=== PATIENT | female | born 1965 | race African-American/Black ===

== ENCOUNTER 2017-08-12 08:18 | Emergency (ER) | payer OTHER ==
[2017-08-12 08:32] VITALS: BP 115/87; PULSE 85; TEMP 98; BMI 43.7
[2017-08-12] MEDS ORDERED: IBUPROFEN 400 MG TABLET (FP) PO ONE ×3 (09:27→09:36)
--- NOTE | 2017-08-12 09:27 | PDOC ---
History of Present Illness - General Chief Complaint: Respiratory Stated Complaint: NASAL CONGESTION Time Seen by Provider: 08/12/17 09:13 History Source: Patient Exam Limitations: No Limitations Past History - Past Medical History Allergies/Adverse Reactions: Allergies Allergy/AdvReac Type Severity Reaction Status Date / Time shellfish derived Allergy Swelling Verified 08/12/17 08:28 Home Medications: Ambulatory Orders Hydrochlorothiazide [Hctz] 25 mg PO DAILY 02/05/12 Metoprolol Tartrate [Lopressor -] 25 mg PO DAILY 02/05/12 Rabeprazole Sodium [Aciphex] 20 mg PO DAILY 02/05/12 Valsartan [Diovan] 320 mg PO DAILY 02/05/12 Aspirin/Calcium Carbonate/Mag [Aspirin Buffered 325 mg Tab] 325 mg PO DAILY 09/08 Amoxicillin/Potassium Clav [Augmentin 875-125 Tablet] 1 each PO BID #14 tablet 08/12/17 Anemia: No Asthma: No Cancer: Yes (COLON) Cardiac Disorders: Yes (BUNDLE BLOCK) CVA: No COPD: No CHF: No Dementia: No Diabetes: No GI Disorders: Yes (gerd) Disorders: No HTN: Yes Hypercholesterolemia: Yes Liver Disease: No Psychiatric Problems: Yes (ANXIETY.) Seizures: No Thyroid Disease: No - Surgical History Abdominal Surgery: Yes (COLON RESECTION) Appendectomy: No Cardiac Surgery: No Cholecystectomy: No Lung Surgery: No Neurologic Surgery: No Orthopedic Surgery: No - Reproductive History (#): 5 Para: 1 Cervical CA: No Dysfunctional Uterine Bleeding: No Ectopic : No Endometrial CA: No Polycystic Ovaries: No Therapeutic (s) & number: Yes (2) Tubal Ligation: No Spontaneous : 2 - Immunization History Td Vaccination: No TDAP Vaccination: No Immunization Up to Date: No - Suicide/Smoking/Psychosocial Hx Smoking Status: Yes Smoking History: Former smoker Years of Tobacco Use: 0 Have you smoked in the past 12 months: No Number of Cigarettes Smoked Daily: 0 Information on smoking cessation initiated: No Hx Alcohol Use: No Drug/Substance Use Hx: No Substance Use Type: None Hx Substance Use Treatment: No Review of Systems - Review of Systems Able to Perform ROS?: Yes Comments:: 08/12/17 09:28 CONSTITUTIONAL: Absent: fever, chills, diaphoresis, generalized weakness, malaise, loss of appetite HEENT: Present: facial pain, sore throat, increasing congestion, ear pain Absent: throat swelling, difficulty swallowing, mouth swelling, , eye pain, visual Changes CARDIOVASCULAR: Absent: chest pain, loss of consciousness, palpitations, irregular heart rate, peripheral edema RESPIRATORY: Absent: cough, shortness of breath, dyspnea with exertion, orthopnea, wheezing, stridor, hemoptysis. MUSCULOSKELETAL: Absent: myalgia, arthralgia, joint swelling SKIN: Absent: rash, itching, pallor NEUROLOGIC: Absent: headache, focal weakness or paresthesias, dizziness, unsteady gait, seizure, mental status changes, bladder or bowel incontinence. Is the patient limited [place] proficient: No *Physical Exam - Vital Signs Last Vital Signs Temp Pulse Resp BP Pulse Ox 98 F 85 19 115/87 98 08/12/17 08:28 08/12/17 08:28 08/12/17 08:28 08/12/17 08:28 08/12/17 08:28 - Physical Exam Comments: 08/12/17 09:29 GENERAL: Well developed, well nourished. Awake and alert. No acute distress. HEENT: Normocephalic, atraumatic. PERRLA, EOMI. No conjunctival pallor. Sclera are non- icteric. Moist mucous membranes. Oropharynx is clear. TM's appear pearly [place] in color with good cones of light b/l. Well defined landmarks. No bulging or erythema. TTP of the maxillary and frontal sinuses NECK: Supple. Full ROM. No JVD. Carotid pulses 2+ and symmetric, without bruits. No thyromegaly. No lymphadenopathy. CARDIOVASCULAR: Regular rate and rhythm. No murmurs, rubs, or gallops. Distal pulses are 2+ and symmetric. PULMONARY: No evidence of respiratory distress. Lungs clear to auscultation bilaterally. No wheezing, rales or rhonchi. EXTREMITIES: No cyanosis. No clubbing. No edema. No calf tenderness. SKIN: Warm and dry. Normal capillary refill. No rashes. No jaundice. NEUROLOGICAL: Alert, awake, appropriate. Cranial nerves 2-12 intact. No deficits to light touch and temperature in face, upper extremities and lower extremities. No motor deficits in the in face, upper extremities and lower extremities. Normoreflexic in the upper and lower extremities. Normal speech. Toes are down- going bilaterally. Gait is normal without ataxia. *DC/Admit/Observation/Transfer Diagnosis at time of Disposition: Sinus infection Qualifiers: Sinusitis location: maxillary Chronicity: acute Recurrence: non-recurrent Qualified Code(s): J01.00 - Acute maxillary sinusitis, unspecified - Discharge Dispostion Disposition: HOME Condition at time of disposition: Stable Admit: No - Prescriptions Prescriptions: Amoxicillin/Potassium Clav [Augmentin 875-125 Tablet] 1 each PO BID #14 tablet - Referrals Referrals: Lucero Carl MD [Primary Care Provider] - Woodrow Shen MD [Staff Physician] - - Patient Instructions Printed Discharge Instructions: DI for Sinusitis Additional Instructions: You have a sinus infection. Please take the Augmentin twice a day for one week to help with your symptoms. You may take Motrin 800 mg every 8 hours as needed for pain. Warm steamy showers may help with decongestion. You may also use the Shirley pot to help remove any excess mucous. These can be picked up over-the- counter at the pharmacy. Please follow-up with your primary care doctor later this week. Return to the emergency department if you have worsening headache, lightheadedness, dizziness, fevers, or any changes in your symptoms. - Post Discharge Activity
== END 2017-08-12 09:44 | disposition home or self-care (01) ==
LOC: JERFT 08:18
DX: J01.00 Acute maxillary sinusitis, unspecified (principal); I10 Essential (primary) hypertension; E78.00 Pure hypercholesterolemia, unspecified; K21.9 Gastro-esophageal reflux disease without esophagitis; F41.9 Anxiety disorder, unspecified; Z85.038 Personal history of other malignant neoplasm of large intestine; Z87.891 Personal history of nicotine dependence
CPT/HCPCS: 99281-25

== ENCOUNTER 2018-02-03 09:37 | Emergency (ER) | payer OTHER ==
[2018-02-03 09:56] VITALS: BMI 43.9
--- NOTE | 2018-02-03 10:11 | PDOC ---
History of Present Illness - General Chief Complaint: Pain, Acute Stated Complaint: NAUSEA, LIGHTHEADED Time Seen by Provider: 02/03/18 10:11 - History of Present Illness Initial Comments: 02/03/18 11:28 The patient is a 52 year old female with a history of HTN, HLD, Colon CA, Anxiety who presents for evaluation of lightheadedness, nausea, and flank pain. The patient reports a several day history of intermittent lightheadedness and dizziness that usually resolves on its own. She noted some poorly described right sided flank pain yesterday evening as well that resolved after drinking water, however given her constellation of symptoms presents to the ER for further evaluation. She otherwise denies fevers, chills, SOB, chest pain, vomiting, or changes with urination or bowel movements. Past History - Past Medical History Allergies/Adverse Reactions: Allergies Allergy/AdvReac Type Severity Reaction Status Date / Time shellfish derived Allergy Swelling Verified 02/03/18 09:52 Home Medications: Ambulatory Orders Hydrochlorothiazide [Hctz] 25 mg PO DAILY 02/05/12 Metoprolol Tartrate [Lopressor -] 25 mg PO DAILY 02/05/12 Rabeprazole Sodium [Aciphex] 20 mg PO DAILY 02/05/12 Valsartan [Diovan] 320 mg PO DAILY 02/05/12 Aspirin/Calcium Carbonate/Mag [Aspirin Buffered 325 mg Tab] 325 mg PO DAILY 09/08 Mirabegron [Myrbetriq] 50 mg PO DAILY 02/03/18 Pentosan Polysulfate Sodium [Elmiron] 100 mg PO TID 02/03/18 Simvastatin [Zocor -] 20 mg PO HS 02/03/18 Anemia: No Asthma: No Cancer: Yes (COLON) Cardiac Disorders: Yes (BUNDLE BLOCK) CVA: No COPD: No CHF: No Dementia: No Diabetes: No GI Disorders: Yes (gerd) Disorders: No HTN: Yes Hypercholesterolemia: Yes Liver Disease: No Psychiatric Problems: Yes (ANXIETY.) Seizures: No Thyroid Disease: No - Surgical History Abdominal Surgery: Yes (COLON RESECTION) Appendectomy: No Cardiac Surgery: No Cholecystectomy: No Lung Surgery: No Neurologic Surgery: No Orthopedic Surgery: No - Reproductive History (#): 5 Para: 1 Cervical CA: No Dysfunctional Uterine Bleeding: No Ectopic : No Endometrial CA: No Polycystic Ovaries: No Therapeutic (s) & number: Yes (2) Tubal Ligation: No Spontaneous : 2 - Immunization History Td Vaccination: No TDAP Vaccination: No Immunization Up to Date: No - Suicide/Smoking/Psychosocial Hx Smoking Status: Yes Smoking History: Former smoker Years of Tobacco Use: 0 Have you smoked in the past 12 months: No Number of Cigarettes Smoked Daily: 0 Information on smoking cessation initiated: No Hx Alcohol Use: No Drug/Substance Use Hx: No Substance Use Type: None Hx Substance Use Treatment: No Review of Systems - Review of Systems Comments:: 02/03/18 11:32 Constitutional: No fevers, chills, fatigue, malaise HEENT: No Rhinorrhea, nasal congestion, visual changes Cardiovascular: Lightheadedness. No chest pain, syncope, palpitations, Respiratory: No Cough, SOB, Hemoptysis, Gastrointestinal: Nausea. No Vomiting, Constipation, Diarrhea, Melena Genitourinary: Right Flank pain. No Dysuria, Frequency, Urgency, Hesitancy, Hematuria, Musculoskeletal: No Myalgia, arthralgia Skin: No rashes, itching, bruising, pallor Neurologic: Dizziness. No Headache, Numbness, Weakness, or Tingling Psychiatric: No Hallucinations. No SI or HI *Physical Exam - Vital Signs Last Vital Signs Temp Pulse Resp BP Pulse Ox 98.4 F 70 19 138/76 97 02/03/18 09:53 02/03/18 09:53 02/03/18 09:53 02/03/18 09:53 02/03/18 09:53 - Physical Exam Comments: 02/03/18 11:32 General Appearance: Nourished. No Apparent Distress HEENT: TM are clear. No Pharyngeal Erythema, Tonsillar Exudate, Tonsillar Erythema Neck: No Cervical Lymphadenopathy Respiratory/Chest: Lungs Clear, Normal Breath Sounds. No Crackles, Rales, Rhonchi, Wheezing Cardiovascular: Regular Rhythm, Regular Rate. No Murmur, Gallops, Rubs Gastrointestinal/Abdominal: Normal Bowel Sounds, Soft. No Guarding, Rebound, Tenderness Musculoskeletal: No CVA Tenderness Extremity: Normal Capillary Refill Integumentary: Normal Color, Dry, Warm Neurologic:Fully Oriented, Alert, Normal Mood/Affect, Normal Response, Heart Score/ECG Review #1 ECG reviewed & interpreted by me at: 12:37 General ECG Interpretation: Sinus Rhythm, Normal Rate, No acute ischemic changes Compared to previous ECG there are: No significant change 02/03/18 12:37 Left Bundle Branch Block ED Treatment Course - LABORATORY CBC & Chemistry Diagram: 02/03/18 10:30 02/03/18 10:30 Medical Decision Making - Medical Decision Making 02/03/18 11:33 The patient is a 52 year old female with a history of HTN, HLD, Colon CA, Anxiety who presents for evaluation of lightheadedness, nausea, and flank pain. Given the patient's history and physical exam, we will obtain a cbc, cmp, lipase, ua to evaluate further for possible etiologies. We will treat in the meantime with iv fluids and continue to monitor and reassess while here in the ED. 02/03/18 12:47 CBC, cmp, liapase, ua are unremarkable. The patient appears clinically well on exam. We are comfortable discharging the patient home with primary care provider follow up on . We discussed the results, plan, and return precautions with the patient who voiced understanding and is agreeable with the plan. *DC/Admit/Observation/Transfer Diagnosis at time of Disposition: Lightheadedness - Discharge Dispostion Disposition: HOME Condition at time of disposition: Stable Decision to Admit order: No - Referrals Referrals: Lucero Carl MD [Staff Physician] - - Patient Instructions Printed Discharge Instructions: DI for Syncope in Adults (Fainting) Additional Instructions: Please return to the ER if you experience concerning or worsening symptoms including worsening pain, weakness, or vomiting. Your lab results were normal here in the ER. Please make sure you keep your follow up appointment with your primary care provider in 1 week to discuss your ER visit and further management of your symptoms. - Post Discharge Activity
[2018-02-03] MEDS ORDERED: SODIUM CHLORIDE 1,000 ML IV STA (10:37)
[2018-02-03 11:04] LABS: BASO % 0.6 % (0-2.0); EOS % 1.9 % (0-4.5); HEMATOCRIT 39.2 % (32.4-45.2); HEMOGLOBIN 13.1 GM/dL (10.7-15.3); LYMPH % 32.3 % (8-40); MCH 28.1 pg (25.7-33.7); MCHC 33.4 g/dl (32.0-36.0); MEAN CELL VOLUME 84.1 fl (80-96); MEAN PLT VOLUME 9.5 fl (7.5-11.1); MONO % 8.2 % (3.8-10.2); PLATELET COUNT 183 K/MM3 (134-434); RBC 4.67 M/mm3 (3.60-5.2); RDW 14.4 % (11.6-15.6); WHITE BLOOD COUNT 4.2 K/mm3 (4.0-10.0)
[2018-02-03 11:05] LABS: URINE APPEARANCE CLEAR; URINE BILIRUBIN NEGATIVE (<2.0 mg/dL); URINE COLOR LTYELLOW; URINE GLUCOSE (UA) NEGATIVE (NEGATIVE); URINE KETONE NEGATIVE (NEGATIVE); URINE LEUK ESTERASE NEGATIVE (NEGATIVE); URINE NITRITE NEGATIVE (NEGATIVE); URINE PROTEIN NEGATIVE (NEGATIVE)
--- NOTE | 2018-02-03 11:12 | PDOC ---
Attending Attestation - Resident Resident Name: Cesar Raines - ED Attending Attestation I have performed the following: I have examined & evaluated the patient, The case was reviewed & discussed with the resident, I agree w/resident's findings & plan, Exceptions are as noted - HPI HPI: 02/03/18 11:51 Patient is a 52 year old female with a significant past medical history of Colon CA s/p resection, HTN, HL, GERD, vertigo, who presents to the ED with complaints of lightheadedness that began earlier this week. Patient reports experiencing dizziness, stating it feels like she is going to lose consciousness when she stands. She also reports experiencing right sided mid abdominal pain that began yesterday evening while at home. Patient reports pain subsided after she drank water. She presents today due to the lightheadness. She states this feels like her typical vertigo. No treatments tried. Denies chest pain, Sob. Denies nausea, vomiting, diarrhea. Denies contact with sick individuals, out of state travelling. Denies dysuria, hematuria. Denies constipation, diarrhea. Denies trauma to affected area. Denies any other symptoms. Allergies: Shellfish. Social history: Former smoker. No alcohol. No illicit drugs. Surgical history: Colon resection PMD: Dr. Carl - Physicial Exam PE: 02/03/18 11:56 GENERAL: Awake, alert, and fully oriented, in no acute distress HEAD: No signs of trauma EYES: PERRLA, EOMI, sclera anicteric, conjunctiva clear ENT: Auricles normal inspection, hearing grossly normal, nares patent, oropharynx clear without exudates. Moist mucosa NECK: Normal ROM, supple, no lymphadenopathy, JVD, or masses LUNGS: Breath sounds equal, clear to auscultation bilaterally. No wheezes, and no crackles HEART: Regular rate and rhythm, normal S1 and S2, no murmurs, rubs or gallops ABDOMEN: Soft, nontender, normoactive bowel sounds. No guarding, no rebound. No masses. No CVAT EXTREMITIES: Normal range of motion, no edema. No clubbing or cyanosis. No cords, erythema, or tenderness BACK: No midline spinal tenderness in cervical/thoracic/lumbar region NEUROLOGICAL: Normal speech, cranial nerves intact, negative pronator drift, 5/ 5 strength in all 4 extremities, normal sensation to light touch in all 4 extremities, normal cerebellar exam, normal gait, normal reflexes and tone SKIN: Warm, Dry, normal turgor, no rashes or lesions noted. - Medical Decision Making 02/03/18 11:00 52yo F presents to the ED with lightheadedness, worse when standing c/w clinical orthostasis. Pt likely dehydrated as she states she doesn't drink a lot of water even when it's hot out. With regards to resolved R sided abd pain, pt is not tender today on exam and currently denies abd pain. Will check labs including lipase, LFTs and consider US if abnormal. Will also check EKG, UA, CBC. 02/03/18 12:44 Labs, urinalysis, unremarkable EKG with LBBB, LAD, no change compared to previous Pt reports resolution of sxs after 1L normal saline and feels much better Ambulating in the ED, requests DC home I discussed the physical exam findings, ancillary test results and final diagnoses with the patient. I answered all of the patient's questions. The patient was satisfied with the care received and felt comfortable with the discharge plan and treatment plan. The patient will call their primary care physician within 24 hours to arrange follow-up and will return to the Emergency Department with any new, persistent or worsening symptoms. Heart Score/ECG Review #1 02/03/18 12:41 Twelve-lead EKG was performed and reviewed by me. Sinus rhythm with first- degree AV block. +LAD and LBBB. No ST changes that meet scarbossa criteria. COmpared to EKG from 12/24/16, no sig changes
[2018-02-03] MEDS ORDERED: MECLIZINE HCL 25 MG TABLET (FP) PO ONE (11:48)
[2018-02-03 11:50] LABS: ALBUMIN 3.4 g/dl (3.4-5.0); ALK PHOS 95 U/L (45-117); ANION GAP 7 (8-16); BILIRUBIN,TOTAL 0.6 mg/dL (0.2-1.0); BLOOD UREA NITROGEN 14 mg/dL (7-18); CALCIUM 8.8 mg/dL (8.5-10.1); CHLORIDE 103 mmol/L (98-107); CO2 31 mmol/L (21-32); CREATININE 0.9 mg/dL (0.55-1.02); GLUCOSE,RANDOM 92 mg/dL (74-106); LIPASE 127 U/L (73-393); POTASSIUM 3.5 mmol/L (3.5-5.1); SGOT/AST 20 U/L (15-37); SGPT/ALT 26 U/L (12-78); SODIUM 141 mmol/L (136-145); TOT PROT 7.3 g/dl (6.4-8.2)
[2018-02-03] MEDS ORDERED: MECLIZINE HCL 25 MG TABLET (FP) ONE (12:05)
[2018-02-03 12:56] VITALS: BP 135/72; PULSE 69; TEMP 98.1
--- NOTE | 2018-02-04 09:05 | EKG ---
Test Reason : Blood Pressure : / mmHG Vent. Rate : 066 BPM Atrial Rate : 066 BPM P-R Int : 240 ms QRS Dur : 166 ms QT Int : 464 ms P-R-T Axes : 023 -38 083 degrees QTc Int : 486 ms SINUS RHYTHM WITH 1ST DEGREE A-V BLOCK LEFT AXIS DEVIATION LEFT BUNDLE BRANCH BLOCK ABNORMAL ECG WHEN COMPARED WITH ECG OF 24-DEC-2016 17:00, NONSPECIFIC T WAVE ABNORMALITY HAS REPLACED INVERTED T WAVES IN LATERAL LEADS Confirmed by NILDA BATRES MD ([id number]) on 02/04/2018 9:05:00 AM Referred By: Confirmed By:NILDA BATRES MD
== END 2018-02-03 12:56 | disposition home or self-care (01) ==
LOC: JER 09:37
PROC: 3E0337Z Introduction of Electrolytic and Water Balance Substance into Peripheral Vein, Percutaneous Approach (ICD-10-PCS; principal; 2018-02-03)
DX: R42 Dizziness and giddiness (principal); I10 Essential (primary) hypertension; E78.5 Hyperlipidemia, unspecified; F41.9 Anxiety disorder, unspecified; Z85.038 Personal history of other malignant neoplasm of large intestine
CPT/HCPCS: 36415; 80053; 81003; 83690; 85025; 87086; 93005; 93010; 99281-25; J7030

== ENCOUNTER 2018-09-19 08:30 | Emergency (ER) | payer OTHER ==
[2018-09-19 08:41] VITALS: BP 121/70; PULSE 73; TEMP 97.6; BMI 43.0
--- NOTE | 2018-09-19 09:27 | PDOC ---
History of Present Illness - General Chief Complaint: Ear Problem Stated Complaint: EAR / ABD PAIN Time Seen by Provider: 09/19/18 08:56 History Source: Patient Exam Limitations: Clinical Condition - History of Present Illness Initial Comments: 09/19/18 09:22 Patient with history of hypertension, hyperlipidemia and colon cancer diagnosed over 5 years ago now status post colostomy present with complaint of 4 day history of dizziness, facial pain, right ear pain and floaters which comes on spontaneously. Patient also reported occasional nausea. Patient reports symptoms has been intermittent over 2 years and she get this symptoms ever 3-4 months. Patient has not had any evaluation for symptoms. Patient on 3 blood pressure medication for blood pressure control. Denies fever, chills, vomiting. Denies chest pain, shortness of breath or chills. Timing/Duration: other (4 days) Past History - Past Medical History Allergies/Adverse Reactions: Allergies Allergy/AdvReac Type Severity Reaction Status Date / Time shellfish derived Allergy Swelling Verified 09/19/18 08:35 Home Medications: Ambulatory Orders Hydrochlorothiazide [Hctz] 25 mg PO DAILY 02/05/12 Metoprolol Tartrate [Lopressor -] 25 mg PO DAILY 02/05/12 Rabeprazole Sodium [Aciphex] 20 mg PO DAILY 02/05/12 Valsartan [Diovan] 320 mg PO DAILY 02/05/12 Aspirin/Calcium Carbonate/Mag [Aspirin Buffered 325 mg Tab] 325 mg PO DAILY 09/08 Mirabegron [Myrbetriq] 50 mg PO DAILY 02/03/18 Pentosan Polysulfate Sodium [Elmiron] 100 mg PO TID 02/03/18 Simvastatin [Zocor -] 20 mg PO HS 02/03/18 Neomycin/Polymyxin B/Hydrocort [Sonhhjqh-Dyqbwkngm-Gy Ear Susp] 4 drop OT Q6H 5 Days #1 bottle 09/19/18 Anemia: No Asthma: No Cancer: Yes (COLON) Cardiac Disorders: Yes (BUNDLE BLOCK) CVA: No COPD: No CHF: No Dementia: No Diabetes: No GI Disorders: Yes (gerd) Disorders: No HTN: Yes Hypercholesterolemia: Yes Liver Disease: No Psychiatric Problems: Yes (ANXIETY.) Seizures: No Thyroid Disease: No - Surgical History Abdominal Surgery: Yes (COLON RESECTION) Appendectomy: No Cardiac Surgery: No Cholecystectomy: No Lung Surgery: No Neurologic Surgery: No Orthopedic Surgery: No - Reproductive History (#): 5 Para: 1 Cervical CA: No Dysfunctional Uterine Bleeding: No Ectopic : No Endometrial CA: No Polycystic Ovaries: No Therapeutic (s) & number: Yes (2) Tubal Ligation: No Spontaneous : 2 - Immunization History Td Vaccination: No TDAP Vaccination: No Immunization Up to Date: No - Suicide/Smoking/Psychosocial Hx Smoking Status: Yes Smoking History: Never smoked Years of Tobacco Use: 0 Have you smoked in the past 12 months: No Number of Cigarettes Smoked Daily: 0 Hx Alcohol Use: No Drug/Substance Use Hx: No Substance Use Type: None Hx Substance Use Treatment: No Review of Systems - Review of Systems Able to Perform ROS?: Yes Is the patient limited [place] proficient: No Constitutional: No: Chills, Fever, Malaise HEENTM: Yes: Symptoms Reported, See HPI, Eye Pain, Ear Pain (right). No: Blurred Vision, Tearing, Recent change in vision, Double Vision, Cataracts, Ocular Prothesis, Ear Discharge, Nose Pain, Nose Congestion, Tinnitus, Nose Bleeding, Hearing Loss, Throat Pain, Throat Swelling, Mouth Pain, Dental Problems, Difficulty Swallowing, Mouth Swelling, Other Respiratory: No: Symptoms reported, See HPI, Cough, Orthopnea, Shortness of Breath, SOB with Exertion, SOB at Rest, Stridor, Wheezing, Productive cough, Hemoptysis, Other Cardiac (ROS): No: Symptoms Reported, See HPI, Chest Pain, Edema, Irregular Heart Rate, Lightheadedness, Palpitations, Syncope, Chest Tightness, Other ABD/GI: Yes: See HPI, Nausea. No: Constipated, Diarrhea, Vomiting, Abdominal cramping Neurological: Yes: Headache (intermittent), Dizziness (intermittent). No: Numbness, Paresthesia, Seizure, Weakness, Unsteady Gait, Ataxia All Other Systems: Reviewed and Negative *Physical Exam - Vital Signs Last Vital Signs Temp Pulse Resp BP Pulse Ox 97.6 F 73 20 121/70 99 09/19/18 08:35 09/19/18 08:35 09/19/18 08:35 09/19/18 08:35 09/19/18 08:35 - Physical Exam Comments: 09/19/18 09:27 GENERAL: Well developed, well nourished. Awake and alert. No acute distress. HEENT: Moderate cerumen with mild fluid in right ear canal . Normocephalic, atraumatic. PERRLA, EOMI. No conjunctival pallor. Sclera are non- icteric. Moist mucous membranes. Oropharynx is clear. NECK: Supple. Full ROM. No JVD. Carotid pulses 2+ and symmetric, without bruits. No thyromegaly. No lymphadenopathy. CARDIOVASCULAR: Regular rate and rhythm. No murmurs, rubs, or gallops. Distal pulses are 2+ and symmetric. PULMONARY: No evidence of respiratory distress. Lungs clear to auscultation bilaterally. No wheezing, rales or rhonchi. ABDOMINAL: Soft. Non-tender. Non-distended. No rebound or guarding. No organomegaly. Normoactive bowel sounds. MUSCULOSKELETAL Normal range of motion at all joints. No bony deformities or tenderness. No CVA tenderness. EXTREMITIES: No cyanosis. No clubbing. No edema. No calf tenderness. SKIN: Warm and dry. Normal capillary refill. No rashes. No jaundice. NEUROLOGICAL: Alert, awake, appropriate. Cranial nerves 2-12 intact. No deficits to light touch and temperature in face, upper extremities and lower extremities. No motor deficits in the in face, upper extremities and lower extremities. Normal speech. Toes are down-going bilaterally. Gait is normal without ataxia. PSYCHIATRIC: Cooperative. Good eye contact. Appropriate mood and affect. General Appearance: Yes: Nourished, Appropriately Dressed. No: Apparent Distress ED Treatment Course - RADIOLOGY Radiology Studies Ordered: Category Date Time Status HEAD CT WITHOUT CONTRAST [CT] Stat CT Scan 09/19/18 09:21 Ordered Medical Decision Making - Medical Decision Making 09/19/18 09:33 Patient with history of hypertension, hyperlipidemia and colon cancer diagnosed over 5 years ago now status post colostomy present with complaint of 4 day history of dizziness, facial pain, right ear pain and floaters which comes on spontaneously. Patient also reported occasional nausea. Patient reports symptoms has been intermittent over 2 years and she get this symptoms ever 3-4 months. Patient has not had any evaluation for symptoms. Patient on 3 blood pressure medication for blood pressure control. Denies fever, chills, vomiting. Denies chest pain, shortness of breath or chills. Exam significant for moderate cerumen with mild fluid in right ear canal. Normal neuro exam. Lungs clear to auscultation. Normal ophthalmic exam. Head CT without contrast ordered to rule out intracranial mass or lesion. Patient be discharged home with ear drops with ophthalmology and ENT follow-up if negative head CT. 09/19/18 10:[address] negative for acute intracranial pathology. Patient is stable for discharge with ENT and ophthalmology follow-up *DC/Admit/Observation/Transfer Diagnosis at time of Disposition: Otalgia of right ear, Lightheadedness Floater, vitreous Qualifiers: Laterality: bilateral Qualified Code(s): H43.393 - Other vitreous opacities, bilateral - Discharge Dispostion Disposition: HOME Condition at time of disposition: Stable Decision to Admit order: No - Prescriptions Prescriptions: Neomycin/Polymyxin B/Hydrocort [Rkiadhht-Inwcfnhyu-Ja Ear Susp] 4 drop OT Q6H 5 Days #1 bottle - Referrals Referrals: Farhad Marques MD [Staff Physician] - Woodrow Shen MD [Staff Physician] - - Patient Instructions Printed Discharge Instructions: DI for Eye Floaters Additional Instructions: Follow-up with Dr. Shen for ear pains. Follow-up with ophthalmology Dr. Marques for visual floaters as soon as possible. Your head CAT scan shows no mass or acute pathology - Post Discharge Activity
== END 2018-09-19 10:31 | disposition home or self-care (01) ==
LOC: JERFT 08:30
DX: H66.91 Otitis media, unspecified, right ear (principal); H43.393 Other vitreous opacities, bilateral; R42 Dizziness and giddiness; I10 Essential (primary) hypertension; E78.5 Hyperlipidemia, unspecified; Z85.038 Personal history of other malignant neoplasm of large intestine
CPT/HCPCS: 70450-TC; 84703; 99281-25

== ENCOUNTER 2020-01-09 07:34 | Emergency (ER) | payer OTHER ==
[2020-01-09] MEDS ORDERED: DIPHTH,PERTUSS(ACELL),TET 0.5 ML DISP.SYRIN IM ONE ×2 (07:41→08:01)
[2020-01-09 07:42] VITALS: BP 130/64; PULSE 72; TEMP 98.4; BMI 48.7
--- NOTE | 2020-01-09 07:58 | PDOC ---
Rapid Medical Evaluation Chief Complaint: Laceration Time Seen by Provider: 01/09/20 07:37 Medical Evaluation: Allergies Allergy/AdvReac Type Severity Reaction Status Date / Time shellfish derived Allergy Swelling Verified 09/19/18 08:35 Vital Signs Temp Pulse Resp BP Pulse Ox 98.4 F 72 16 130/64 99 01/09/20 07:38 01/09/20 07:38 01/09/20 07:38 01/09/20 07:38 01/09/20 07:38 01/09/20 07:57 CC: lac to left 2 nd finger from broken glass last night, unknown last tdap Exam: 2-3 cm lac over lt 2nd mcp, visable tendons, 5/5 extension/flexion against resistance PlanL: xray to r/o fb, tdap Discharge Disposition - Diagnosis Laceration of finger - Discharge Dispostion Condition at time of disposition: Stable - Referrals - Patient Instructions - Post Discharge Activity
[2020-01-09] MEDS ORDERED: LIDOCAINE HCL 1%, 10 MG/ML (20ML VIAL) ONE (08:05)
[2020-01-09] MEDS ORDERED: CEPHALEXIN MONOHYDRATE 500 MG CAPSULE (UD) PO ONE (08:33)
[2020-01-09] MEDS ORDERED: CEPHALEXIN MONOHYDRATE 500 MG CAPSULE (UD) ONE (08:34)
--- NOTE | 2020-01-09 08:39 | PDOC ---
History of Present Illness - General Chief Complaint: Laceration Stated Complaint: LACERATION LEFT HAND Time Seen by Provider: 01/09/20 07:37 History Source: Patient Exam Limitations: No Limitations - History of Present Illness Initial Comments: 01/09/20 08:40 Patient is a 54-year-old female with a history of high blood pressure and colon cancer who presents to the ED with complaint of a laceration that she sustained to her left hand yesterday while closing a window. She states the window was already broken, and when she went to go close it it fell onto her. A broken piece of the window cut her hand. She states that she was scared to come to the emergency department yesterday so took some convincing prior to coming in. She states the injury happened at 9:30 PM. She denies any numbness or tingling. She is right-hand dominant. She has not taken anything for her symptoms. She does admit to washing the wound initially with peroxide. Past History - Medical History Allergies/Adverse Reactions: Allergies Allergy/AdvReac Type Severity Reaction Status Date / Time shellfish derived Allergy Swelling Verified 09/19/18 08:35 Home Medications: Ambulatory Orders Hydrochlorothiazide [Hctz] 25 mg PO DAILY 02/05/12 Metoprolol Tartrate [Lopressor -] 25 mg PO DAILY 02/05/12 Rabeprazole Sodium [Aciphex] 20 mg PO DAILY 02/05/12 Valsartan [Diovan] 320 mg PO DAILY 02/05/12 Aspirin/Calcium Carbonate/Mag [Aspirin Buffered 325 mg Tab] 325 mg PO DAILY 11/27/14 Mirabegron [Myrbetriq] 50 mg PO DAILY 02/03/18 Pentosan Polysulfate Sodium [Elmiron] 100 mg PO TID 02/03/18 Simvastatin [Zocor -] 20 mg PO HS 02/03/18 Amox-Tr/K Cl [Augmentin - 875Mg Tablet] 1 tab PO BID #14 tablet 09/19/18 Neomycin/Polymyxin B/Hydrocort [Qipzdeop-Ynzctadaa-Lt Ear Susp] 4 drop OT Q6H 5 Days #1 bottle 09/19/18 Cephalexin [Keflex] 500 mg PO BID #14 capsule 01/09/20 Anemia: No Asthma: No Cancer: Yes (COLON) Cardiac Disorders: Yes (BUNDLE BLOCK) CVA: No COPD: No CHF: No Dementia: No Diabetes: No GI Disorders: Yes (gerd) Disorders: No HTN: Yes Hypercholesterolemia: Yes Liver Disease: No Psychiatric Problems: Yes (ANXIETY.) Seizures: No Thyroid Disease: No - Surgical History Abdominal Surgery: Yes (COLON RESECTION) Appendectomy: No Cardiac Surgery: No Cholecystectomy: No Lung Surgery: No Neurologic Surgery: No Orthopedic Surgery: No - Reproductive History (#): 5 Para: 1 Cervical CA: No Dysfunctional Uterine Bleeding: No Ectopic : No Endometrial CA: No Polycystic Ovaries: No Therapeutic (s) & number: Yes (2) Tubal Ligation: No Spontaneous : 2 - Immunization History Td Vaccination: No TDAP Vaccination: No Immunization Up to Date: No - Psycho-Social/Smoking History Smoking Status: Yes Smoking History: Never smoked Years of Tobacco Use: 0 Have you smoked in the past 12 months: No Number of Cigarettes Smoked Daily: 0 Information on smoking cessation initiated: No - Substance Abuse Hx (Audit-C & DAST Scrn) How often the patient has a drink containing alcohol: Never Score: In Men: 4 or > Positive; In Women: 3 or > Positive: 0 Screen Result (Pos requires Nsg. Audit-10AR): Negative In the last yr the pt used illegal drug/Rx for NonMed reason: No Score: Yes response is considered Positive: 0 Screen Result (Positive result requires Nsg. DAST-10): Negative Review of Systems - Review of Systems Comments:: 01/09/20 08:42 - Review of Systems Able to Perform ROS?: Yes Constitutional: No: Fever, Chills, Loss of Appetite, Night Sweats, Weakness HEENTM: No: Eye Pain, Vision changes, Ear Pain, Throat Pain, Throat Swelling, Mouth Pain, Difficulty Swallowing Respiratory: No: Cough, Shortness of Breath, Wheezing, Sputum Production Cardiac (ROS): No: Chest Pain, Chest Tightness, Palpitations, Irregular Heart Beat, Edema ABD/GI: No: Nausea, Vomiting, Abdominal Pain, Diarrhea : No Dysuria, No Hematuria, No Frequency, No Urgency Musculoskeletal: No: Muscle Pain, Back Pain, Joint Pain, Muscle Weakness, Neck Pain Integumentary: No: Lesions, Rash; positive: Left hand laceration Neurological: No: Headache, Numbness, Tingling, Weakness, Speech Difficulties *Physical Exam - Vital Signs Last Vital Signs Temp Pulse Resp BP Pulse Ox 98.4 F 72 16 130/64 99 01/09/20 07:38 01/09/20 07:38 01/09/20 07:38 01/09/20 07:38 01/09/20 07:38 - Physical Exam 01/09/20 08:42 - Physical Exam General Appearance: Nourished, Appropriately Dressed, No Distress HEENT: EOMI, Normal Voice, Hearing Grossly Normal Neck: Supple, No Lymphadenopathy (R), No Lymphadenopathy (L), No Rigidity, No Decreased range of motion Respiratory/Chest: Lungs Clear, Normal Breath Sounds. No Respiratory Distress, No Accessory Muscle Use Cardiovascular: Regular Rhythm, Regular Rate, S1, S2 Musculoskeletal: Normal Inspection. No Decreased Range of Motion Extremity: Normal Capillary Refill, Normal Inspection Integumentary: Normal Color, Dry. No Rash; roughly 3 cm laceration to the dorsum of the left hand over the MCP with moderate gaping. There is evidence of exposed tendon but no tendon laceration. Patient is able to flex and extend at the DIP, PIP and MCP against resistance without difficulty. There appears to be no muscle involvement. No active bleeding. Mild tenderness to palpation. No crepitus. No bony involvement appreciated. 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 NML intact, Fully Oriented, Alert, Normal Mood/Affect, Normal Response Procedures - Laceration/Wound Repair Left Dorsal Hand Wound Length: 2.6 to 5.0 cm Wound Explored: clean, no foreign body present Wound's Depth, Shape: superficial, linear Irrigated w/ Saline: Yes Betadine Prep: Yes Anesthesia: 1% Lidocaine Amount of Anesthetic (ccs): 2 Wound Repaired With: Sutures Suture Size/Type: 4:0, nylon Number of Sutures: 7 Sterile Dressing Applied: Yes Splint Applied: No ED Treatment Course - Medications Given in the ED: ED Medications Discontinued Medications Generic Name Dose Route Start Last Admin Trade Name Freq PRN Reason Stop Dose Admin Diphtheria/Tetanus/Acell Pertussis 0.5 ml 01/09/20 07:41 01/09/20 08:06 Boostrix - IM 01/09/20 07:42 0.5 ml .ONCE ONE Administration Medical Decision Making - Medical Decision Making 01/09/20 08:34 Assessment: Patient is a 54-year-old female with a left hand laceration over the dorsum of the MCP of the index finger. There is no tendon or muscle involvement appreciated. There is exposed tendon but without laceration. Plan: -Copious irrigation of the wound with normal saline, Betadine and peroxide com bination -Suture repair performed -Wound care instructions given -Tetanus booster given in the ED -1 dose of Keflex 500 mg p.o. given in the ED, will DC with 7 days of prophylactic antibiotics -Patient to follow-up in the emergency department in 10 days for suture removal. -She understands and agrees with this treatment plan and she is stable for discharge. Discharge - Discharge Information Problems reviewed: Yes Clinical Impression/Diagnosis: Laceration of hand, left Qualifiers: Encounter type: initial encounter Foreign body presence: without foreign body Qualified Code(s): S61.412A - Laceration without foreign body of left hand, initial encounter Condition: Stable Disposition: HOME - Additional Discharge Information Prescriptions: Cephalexin [Keflex] 500 mg PO BID #14 capsule - Follow up/Referral - Patient Discharge Instructions Patient Printed Discharge Instructions: DI for Laceration Repair Additional Instructions: Keep the wound clean and dry for 24 hours. On the morning of 01/10/2020 you can remove the dressing and wash the wound once daily with warm water and soap. Allow the wound to dry for at least 30 minutes prior to covering. You can leave the wound uncovered while at home, but you should cover the wound while away from home or active. Return to the emergency department in 10 days to have the sutures removed. You had 7 stitches placed today. Return sooner for any increased pain, surrounding redness, sutures coming out on their own, pus from the wound or any other worsening symptoms. Take the antibiotics as prescribed and complete the entire course. The first dose of antibiotic was given to you today in the emergency department so you can start this evening. - Post Discharge Activity Work/Back to School Note: Back to Work
== END 2020-01-09 08:48 | disposition home or self-care (01) ==
LOC: JERFT 07:34
PROC: 0HQGXZZ Repair Left Hand Skin, External Approach (ICD-10-PCS; principal; 2020-01-09)
PROC: 3E0334Z Introduction of Serum, Toxoid and Vaccine into Peripheral Vein, Percutaneous Approach (ICD-10-PCS; 2020-01-09)
DX: S61.412A Laceration without foreign body of left hand, initial encounter (principal)
CPT/HCPCS: 12002-25; 73140-TC-LT-FY; 90471; 90715; 99284-25

== ENCOUNTER 2020-01-22 11:10 | Emergency (ER) | payer OTHER ==
[2020-01-22 11:18] VITALS: BP 119/62; PULSE 70; TEMP 99; BMI 42.5
--- NOTE | 2020-01-22 11:30 | PDOC ---
Suture Removal/Wound Check HPI - History of Present Illness Chief Complaint: Suture/Staple Removal(Here) Stated Complaint: SURTURE REMOVAL Time Seen by Provider: 01/22/20 11:16 History Source: Yes: Patient Exam Limitations: Yes: No Limitations Treated at: [facility] Past History - Travel History Traveled outside of the country in the last 30 days: No Close contact w/someone who was outside of country & ill: No - Medical History Allergies/Adverse Reactions: Allergies Allergy/AdvReac Type Severity Reaction Status Date / Time shellfish derived Allergy Swelling Verified 09/19/18 08:35 Home Medications: Ambulatory Orders Hydrochlorothiazide [Hctz] 25 mg PO DAILY 02/05/12 Metoprolol Tartrate [Lopressor -] 25 mg PO DAILY 02/05/12 Rabeprazole Sodium [Aciphex] 20 mg PO DAILY 02/05/12 Valsartan [Diovan] 320 mg PO DAILY 02/05/12 Aspirin/Calcium Carbonate/Mag [Aspirin Buffered 325 mg Tab] 325 mg PO DAILY 11/27/14 Mirabegron [Myrbetriq] 50 mg PO DAILY 02/03/18 Pentosan Polysulfate Sodium [Elmiron] 100 mg PO TID 02/03/18 Simvastatin [Zocor -] 20 mg PO HS 02/03/18 Amox-Tr/K Cl [Augmentin - 875Mg Tablet] 1 tab PO BID #14 tablet 09/19/18 Neomycin/Polymyxin B/Hydrocort [Hfmlrstu-[place]-Ld Ear Susp] 4 drop OT Q6H 5 Days #1 bottle 09/19/18 Cephalexin [Keflex] 500 mg PO BID #14 capsule 01/09/20 Anemia: No Asthma: No Cancer: Yes (COLON) Cardiac Disorders: Yes (BUNDLE BLOCK) CVA: No COPD: No CHF: No Dementia: No Diabetes: No GI Disorders: Yes (gerd) Disorders: No HTN: Yes Hypercholesterolemia: Yes Liver Disease: No Psychiatric Problems: Yes (ANXIETY.) Seizures: No Thyroid Disease: No - Surgical History Abdominal Surgery: Yes (COLON RESECTION) Appendectomy: No Cardiac Surgery: No Cholecystectomy: No Lung Surgery: No Neurologic Surgery: No Orthopedic Surgery: No - Reproductive History (#): 5 Para: 1 Cervical CA: No Dysfunctional Uterine Bleeding: No Ectopic : No Endometrial CA: No Polycystic Ovaries: No Therapeutic (s) & number: Yes (2) Tubal Ligation: No Spontaneous : 2 - Immunization History Td Vaccination: No TDAP Vaccination: No Immunization Up to Date: No - Psycho-Social/Smoking History Smoking Status: Yes Smoking History: Never smoked Years of Tobacco Use: 0 Have you smoked in the past 12 months: No Number of Cigarettes Smoked Daily: 0 Information on smoking cessation initiated: No - Substance Abuse Hx (Audit-C & DAST Scrn) How often the patient has a drink containing alcohol: Never Score: In Men: 4 or > Positive; In Women: 3 or > Positive: 0 Screen Result (Pos requires Nsg. Audit-10AR): Negative In the last yr the pt used illegal drug/Rx for NonMed reason: No Score: Yes response is considered Positive: 0 Screen Result (Positive result requires Nsg. DAST-10): Negative Suture Removal/Wound Check PE - Physical Exam Laceration/Wound Check Symptoms: reports: Improved. denies: Pain, Fever, Chills, Redness Location of Laceration/Wound: left: Hand (7 simple interrupted sutures intact over the L MCP. Good approximation, no signs of secondary infection) *Review of Systems - Review of Systems Constitutional: No: Chills, Fever, Weakness Integumentary: No: Erythema, Pruritus, Rash *Physical Exam - Vital Signs Last Vital Signs Temp Pulse Resp BP Pulse Ox 99.0 F 70 18 119/62 98 01/22/20 11:15 01/22/20 11:15 01/22/20 11:15 01/22/20 11:15 01/22/20 11:15 - Physical Exam General Appearance: Yes: Nourished, Appropriately Dressed. No: Apparent Distress Extremity: positive: Normal Capillary Refill, Normal Inspection, Normal Range of Motion (FROM of the L MCP) Integumentary: positive: Normal Color, Dry, Warm, Other (Wound well approximated no signs of secondary infection) Medical Decision Making - Medical Decision Making 01/22/20 11:27 The patient is a 54 y/o F who presents to the ER for suture removal from 01/08 on her L hand. Pt reports the wound has healed well. Denies fevers, chills, pain to the site, discharge. Pt took abx as instructed A/P: Suture removal Wound well approximated, no signs of secondary infection 7 simple interrupted sutures removed in triage DC home with wound care instructions Discharge - Discharge Information Problems reviewed: Yes Clinical Impression/Diagnosis: Visit for suture removal Condition: Stable Disposition: HOME - Admission No - Follow up/Referral - Patient Discharge Instructions Patient Printed Discharge Instructions: DI for Suture Removal Additional Instructions: You had your stitches removed today Do not soak the hand for another week, you may wash gently with soap and water Apply mederma to the site to help with scarring twice a day Follow up with your primary care doctor as needed. Return to the ER for fever, pain over the finger, purulent discharge, or if you have any changes in your symptoms - Post Discharge Activity Work/Back to School Note: Back to Work
== END 2020-01-22 11:38 | disposition home or self-care (01) ==
LOC: JERFT 11:10
DX: Z48.02 Encounter for removal of sutures (principal)
CPT/HCPCS: 99281-25

== ENCOUNTER 2020-02-02 18:12 | Emergency (ER) | payer OTHER ==
[2020-02-02 18:22] VITALS: TEMP 98.1; BMI 44.4
[2020-02-02 18:27] VITALS: BP 139/93; PULSE 78
--- NOTE | 2020-02-02 19:29 | PDOC ---
Attending Attestation - Resident Resident Name: Harman Petersonison - ED Attending Attestation I have performed the following: I have examined & evaluated the patient, The case was reviewed & discussed with the resident, I agree w/resident's findings & plan - HPI HPI: 02/02/20 21:32 Pt had an argument with her sig other and she ended up with chest pressure. She is over 48 and overweight and HTN. She has a LBBB. Pt came to get her pain checked out. Pt is with her sig other and they are amicable at this time. He is concerned about her health. - Physicial Exam PE: 02/02/20 21:35 Normal exam Pt is overweight Pt has [id number] lungs CTAB abd soft NT ND no flank pain Normal neuro exam; no gross focal deficits. - Medical Decision Making 02/02/20 21:36 All labs normal; CXR normal 02/02/20 21:36 Pt will get a second cardiac enzyme and if normal, she will be discharged home. 02/02/20 22:09 Pt is feeling better and she is anxious to go home. 02/02/20 23:47 2nd cardiac enzyme is improving and pt is ready to go home. Heart Score/ECG Review - ECG Intrepretation Rhythm: Regular Rhythm - [place] Bat[place]: Left [place] Deviation - P and DC Delta Wave(s) Present: No WPW: No - QRS Widened: LBBB (OLD FINDING) Poor R Wave Progression: No Q Wave Present: No - ST and T Early Repolarization: No Non Specific ST-T Wave changes: No Flattened T Waves: No Prolonged Q-T Interval: No - ECG Impressions Normal ECG: Yes Non-specific ST Elevation: No Ischemic Changes: No Discharge - Discharge Information Problems reviewed: Yes Clinical Impression/Diagnosis: Left bundle branch block, Elevated CK Chest pain Qualifiers: Chest pain type: other chest pain Qualified Code(s): R07.89 - Other chest pain Condition: Improved Disposition: HOME - Follow up/Referral - Patient Discharge Instructions Patient Printed Discharge Instructions: DI for Atypical Chest Pain Additional Instructions: Follow up with your primary care doctor within 3 days regarding your ER visit. Your care is not complete until you follow up. Return to the ER for increasing pain, chest pain, shortness of breath, vomiting, lightheadedness, fever, numbness, weakness or any other new, worsening or concerning symptoms. - Post Discharge Activity Work/Back to School Note: Back to Work
--- NOTE | 2020-02-02 19:36 | PDOC ---
History of Present Illness <Garima Gonzales - Last Filed: 02/02/20 22:40> - History of Present Illness Initial Comments: 02/02/20 19:29 54 yo female with pmh htn, hld, colon cancer (post colon resection 2016 no chemo, no radiation) presents to ED for chest pain that occurred around 5 pm today. Pt explains she was having sinus congestion, throat pain, and ear pain for years and today when taking a deep breath she had left sided sharp 7.5/10 chest pain that lasted a few seconds. With chest pain she had some lightheadedness and shortness of breast that now has completely gone away. Pt denies any nausea, radiation to arm or back, calf tenderness, diaphoresis, any recent travel, fevers, chills, cough. PMH: Colon cancer, hld, htn, bundle branch block PSH: partial colectomy, uteroscopy Allergy: shellfish Social: quit smoking but has 4 pack year history; denies drugs; chronic alcohol use <Chauncey Peterson - Last Filed: 02/02/20 23:06> - General Chief Complaint: Chest Pain Stated Complaint: CHEST DISCOMFORT Time Seen by Provider: 02/02/20 19:03 Past History <Garima Gonzales - Last Filed: 02/02/20 22:40> - Medical History Anemia: No Asthma: No Cancer: Yes (COLON) Cardiac Disorders: Yes (BUNDLE BLOCK) CVA: No COPD: No CHF: No Dementia: No Diabetes: No GI Disorders: Yes (gerd) Disorders: No HTN: Yes Hypercholesterolemia: Yes Liver Disease: No Psychiatric Problems: Yes (ANXIETY.) Seizures: No Thyroid Disease: No - Surgical History Abdominal Surgery: Yes (COLON RESECTION) Appendectomy: No Cardiac Surgery: No Cholecystectomy: No Lung Surgery: No Neurologic Surgery: No Orthopedic Surgery: No - Reproductive History Is Patient Now?: No (#): 5 Para: 1 Cervical CA: No Dysfunctional Uterine Bleeding: No Ectopic : No Endometrial CA: No Polycystic Ovaries: No Therapeutic (s) & number: Yes (2) Tubal Ligation: No Spontaneous : 2 - Immunization History Td Vaccination: No TDAP Vaccination: No Immunization Up to Date: No - Psycho-Social/Smoking History Smoking Status: Yes Smoking History: Never smoked Years of Tobacco Use: 0 Have you smoked in the past 12 months: No Number of Cigarettes Smoked Daily: 0 - Substance Abuse Hx (Audit-C & DAST Scrn) How often the patient has a drink containing alcohol: Never Score: In Men: 4 or > Positive; In Women: 3 or > Positive: 0 Screen Result (Pos requires Nsg. Audit-10AR): Negative In the last yr the pt used illegal drug/Rx for NonMed reason: No Score: Yes response is considered Positive: 0 Screen Result (Positive result requires Nsg. DAST-10): Negative <Chauncey Peterson - Last Filed: 02/02/20 23:06> - Medical History Allergies/Adverse Reactions: Allergies Allergy/AdvReac Type Severity Reaction Status Date / Time shellfish derived Allergy Swelling Verified 02/02/20 18:16 Home Medications: Ambulatory Orders Hydrochlorothiazide [Hctz] 25 mg PO DAILY 02/05/12 Metoprolol Tartrate [Lopressor -] 25 mg PO DAILY 02/05/12 Rabeprazole Sodium [Aciphex] 20 mg PO DAILY 02/05/12 Valsartan [Diovan] 320 mg PO DAILY 02/05/12 Aspirin/Calcium Carbonate/Mag [Aspirin Buffered 325 mg Tab] 325 mg PO DAILY 11/27/14 Mirabegron [Myrbetriq] 50 mg PO DAILY 02/03/18 Pentosan Polysulfate Sodium [Elmiron] 100 mg PO TID 02/03/18 Simvastatin [Zocor -] 20 mg PO HS 02/03/18 Amox-Tr/K Cl [Augmentin - 875Mg Tablet] 1 tab PO BID #14 tablet 09/19/18 Neomycin/Polymyxin B/Hydrocort [Oisomsqx-Dgjtsmzaj-St Ear Susp] 4 drop OT Q6H 5 Days #1 bottle 09/19/18 Cephalexin [Keflex] 500 mg PO BID #14 capsule 01/09/20 Review of Systems - Review of Systems Comments:: 02/02/20 19:34 GENERAL/CONSTITUTIONAL: No fever or chills. No weakness. HEAD, EYES, EARS, NOSE AND THROAT: No change in vision. Ear pain and soar throat. CARDIOVASCULAR: chest pain and SOB RESPIRATORY: No cough, wheezing, or hemoptysis. GASTROINTESTINAL: No nausea, vomiting, diarrhea or constipation. GENITOURINARY: No dysuria, frequency, or change in urination. MUSCULOSKELETAL: No joint or muscle swelling or pain. No neck or back pain. SKIN: No rash NEUROLOGIC: No headache, vertigo, loss of consciousness, or change in strength/sensation. ENDOCRINE: No increased thirst. No abnormal weight change HEMATOLOGIC/LYMPHATIC: No anemia, easy bleeding, or history of blood clots. ALLERGIC/IMMUNOLOGIC: No hives or skin allergy. <Chauncey Peterson - Last Filed: 02/02/20 23:06> *Physical Exam - Vital Signs Last Vital Signs Temp Pulse Resp BP Pulse Ox 98.1 F 78 18 139/93 99 02/02/20 18:18 02/02/20 18:23 02/02/20 18:18 02/02/20 18:23 02/02/20 18:18 <Garima Gonzales - Last Filed: 02/02/20 22:40> - Vital Signs Last Vital Signs Temp Pulse Resp BP Pulse Ox 98.1 F 78 18 139/93 99 02/02/20 18:18 02/02/20 18:23 02/02/20 18:18 02/02/20 18:23 02/02/20 18:18 - Physical Exam 02/02/20 19:36 GENERAL: Awake, alert, and fully oriented, in no acute distress HEAD: No signs of trauma, normocephalic, atraumatic EYES: PERRLA, EOMI, sclera anicteric, conjunctiva clear ENT: Auricles normal inspection, hearing grossly normal, nares patent, oropharynx clear without exudates. Moist mucosa. tympanic membrane intact with no erythema. NECK: Normal ROM, supple, 1 cm palpable lymph node, JVD, or masses LUNGS: No distress, speaks full sentences, clear to auscultation bilaterally HEART: Regular rate and rhythm, normal S1 and S2, no murmurs, rubs or gallops, peripheral pulses normal and equal bilaterally. ABDOMEN: Soft, nontender, normoactive bowel sounds. No guarding, no rebound. No masses EXTREMITIES : Normal inspection, Normal range of motion, no edema. No clubbing or cyanosis. NEUROLOGICAL: Cranial nerves II through XII grossly intact. Normal speech,, no focal sensorimotor deficits SKIN: Warm, Dry, normal turgor, no rashes or lesions noted <Chauncey Peterson - Last Filed: 02/02/20 23:06> ED Treatment Course - LABORATORY CBC & Chemistry Diagram: 02/02/20 20:00 02/02/20 20:00 - ADDITIONAL ORDERS Additional order review: Laboratory Results 02/02/20 02/02/20 20:00 20:00 PT with INR 12.50 INR 1.06 PTT (Actin FS) 31.1 Sodium 141 Potassium 3.6 Chloride 104 Carbon Dioxide 33 H Anion Gap 5 L BUN 14.1 Creatinine 1.0 Est GFR (CKD-EPI)AfAm 72.93 Est GFR (CKD-EPI)NonAf 62.93 Random Glucose 102 Calcium 9.2 Total Bilirubin 0.6 AST 22 ALT 26 Alkaline Phosphatase 100 Creatine Kinase 301 H Creatine Kinase Index 0.3 CK-MB (CK-2) 1.0 Troponin I < 0.02 Total Protein 7.7 Albumin 3.7 02/02/20 20:00 RBC 4.90 MCV 86.4 MCHC 32.2 RDW 14.8 MPV 9.1 Neutrophils % 57.9 Lymphocytes % 31.1 Monocytes % 7.9 Eosinophils % 2.1 Basophils % 1.0 - RADIOLOGY Radiology Studies Ordered: Category Date Time Status CHEST X-RAY PORTABLE* [RAD] Stat Radiology 02/02/20 19:24 Taken <Garima Gonzales - Last Filed: 02/02/20 22:40> - LABORATORY CBC & Chemistry Diagram: 02/02/20 20:00 02/02/20 20:00 <Chauncey Peterson - Last Filed: 02/02/20 23:06> Medical Decision Making - Medical Decision Making 02/02/20 19:38 54 yo female coming in with chest pain with pmh of hld, htn and smoking history. Will get ekg, cxr, and cardiac enzymes. Cardiac enzymes again in 3 hours. 02/02/20 22:06 Pt preliminary Troponin was negative but pt does have elevated CK will give 500mL Normal saline. 02/02/20 23:06 Pt second troponin came back negative. Pt feels well and wants to go home. Will DC. <Chauncey Peterson - Last Filed: 02/02/20 23:06> Discharge - Discharge Information Problems reviewed: Yes - Admission No <Garima Gonzales - Last Filed: 02/02/20 22:40> <Chauncey Peterson - Last Filed: 02/02/20 23:06> - Discharge Information Clinical Impression/Diagnosis: Left bundle branch block, Elevated CK Chest pain Qualifiers: Chest pain type: other chest pain Qualified Code(s): R07.89 - Other chest pain Condition: Improved Disposition: HOME - Patient Discharge Instructions Patient Printed Discharge Instructions: DI for Atypical Chest Pain Additional Instructions: Follow up with your primary care doctor within 3 days regarding your ER visit. Your care is not complete until you follow up. Return to the ER for increasing pain, chest pain, shortness of breath, vomiting, lightheadedness, fever, numbness, weakness or any other new, worsening or concerning symptoms. - Post Discharge Activity Work/Back to School Note: Back to Work
[2020-02-02 20:19] LABS: EOS % 2.1 % (0-4.5); HEMATOCRIT 42.3 % (32.4-45.2); HEMOGLOBIN 13.6 GM/dL (10.7-15.3); LYMPH % 31.1 % (8-40); MCH 27.8 pg (25.7-33.7); MCHC 32.2 g/dl (32.0-36.0); MEAN CELL VOLUME 86.4 fl (80-96); MEAN PLT VOLUME 9.1 fl (7.5-11.1); MONO % 7.9 % (3.8-10.2); NEUT % 57.9 % (42.8-82.8); PLATELET COUNT 198 K/MM3 (134-434); RDW 14.8 % (11.6-15.6); WHITE BLOOD COUNT 4.7 K/mm3 (4.0-10.0)
[2020-02-02 20:32] LABS: INR 1.06 (0.83-1.09); PROTHROMBIN TIME (PATIENT) 12.5 SEC (9.7-13.0)
[2020-02-02 20:35] LABS: ACTIVATED PTT 31.1 SECONDS (25.2-36.5)
[2020-02-02 20:47] LABS: ALBUMIN 3.7 g/dl (3.4-5.0); ALK PHOS 100 U/L (45-117); ANION GAP 5 MMOL/L (8-16); BILIRUBIN,TOTAL 0.6 mg/dL (0.2-1); BLOOD UREA NITROGEN 14.1 mg/dL (7-18); CALCIUM 9.2 mg/dL (8.5-10.1); CHLORIDE 104 mmol/L (98-107); CO2 33 mmol/L (21-32); GLUCOSE,RANDOM 102 mg/dL (74-106); POTASSIUM 3.6 mmol/L (3.5-5.1); SGOT/AST 22 U/L (15-37); SGPT/ALT 26 U/L (13-61); SODIUM 141 mmol/L (136-145); TOT PROT 7.7 g/dl (6.4-8.2)
[2020-02-02] MEDS ORDERED: SODIUM CHLORIDE 0.9% 500 ML INFUS.BAG IV ONE (22:26)
--- NOTE | 2020-02-03 08:53 | EKG ---
Test Reason : Blood Pressure : / mmHG Vent. Rate : 071 BPM Atrial Rate : 071 BPM P-R Int : 234 ms QRS Dur : 160 ms QT Int : 430 ms P-R-T Axes : 072 -58 116 degrees QTc Int : 467 ms POOR DATA QUALITY, INTERPRETATION MAY BE ADVERSELY AFFECTED SINUS RHYTHM WITH 1ST DEGREE A-V BLOCK LEFT AXIS DEVIATION LEFT BUNDLE BRANCH BLOCK ABNORMAL ECG WHEN COMPARED WITH ECG OF 03-FEB-2018 12:24, NO SIGNIFICANT CHANGE WAS FOUND Confirmed by Kenzie Gaviria ([id number]) on 02/03/2020 8:53:25 AM Referred By: Confirmed By:Kenzie Gaviria
== END 2020-02-02 23:49 | disposition home or self-care (01) ==
LOC: JER 18:12
DX: R07.89 Other chest pain (principal); I44.7 Left bundle-branch block, unspecified; R74.8 Abnormal levels of other serum enzymes
CPT/HCPCS: 36415; 71045-TC-FY; 80053; 82550; 82553; 84484; 85025; 85610; 85730; 93005; 93010; 99285-25

== ENCOUNTER 2020-08-11 09:21 | Observation (INO) | payer OTHER ==
[2020-08-11 11:52] LABS: BASO % 0.9 % (0-2.0); EOS % 1.3 % (0-4.5); HEMATOCRIT 40.2 % (32.4-45.2); HEMOGLOBIN 13.3 GM/dL (10.7-15.3); LYMPH % 29.1 % (8-40); MEAN PLT VOLUME 9.1 fl (7.5-11.1); MONO % 8.9 % (3.8-10.2); NEUT % 59.8 % (42.8-82.8); PLATELET COUNT 185 K/MM3 (134-434); RBC 4.74 M/mm3 (3.60-5.2); RDW 14.5 % (11.6-15.6); WHITE BLOOD COUNT 3.5 K/mm3 (4.0-10.0)
[2020-08-11 12:04] LABS: INR 1.05 (0.83-1.09); PROTHROMBIN TIME (PATIENT) 12.7 SEC (9.7-13.0)
[2020-08-11 12:07] LABS: ACTIVATED PTT 23.6 SECONDS (25.2-36.5)
[2020-08-11 12:26] LABS: CHLORIDE 105 mmol/L (98-107); SODIUM 140 mmol/L (136-145)
[2020-08-11 12:28] LABS: ALBUMIN 3.4 g/dl (3.4-5.0); CALCIUM 8.9 mg/dL (8.5-10.1)
[2020-08-11 12:29] LABS: ANION GAP 4 MMOL/L (8-16); BLOOD UREA NITROGEN 14.6 mg/dL (7-18); CO2 30 mmol/L (21-32); GLUCOSE,RANDOM 98 mg/dL (74-106); LIPASE 95 U/L (73-393)
[2020-08-11 12:31] LABS: PHOSPHOROUS 3.3 mg/dL (2.5-4.9); SGPT/ALT 25 U/L (13-61)
[2020-08-11 12:32] LABS: CREATININE 0.9 mg/dL (0.55-1.3); SGOT/AST 18 U/L (15-37)
[2020-08-11 12:33] LABS: ALK PHOS 97 U/L (45-117); BILIRUBIN,TOTAL 0.8 mg/dL (0.2-1); TOT PROT 7.4 g/dl (6.4-8.2)
[2020-08-11 12:34] LABS: N-TERMINAL BNP 155.8 pg/ml (5-125)
[2020-08-11] MEDS ORDERED: MAG HYDROX/AL HYDROX/SIMETH 30 ML UNIT-DOSE CUP PO ONE (18:21)
[2020-08-11] MEDS ORDERED: ASPIRIN COATED 81 MG TABLET.EC ONE (18:33)
[2020-08-11] MEDS ORDERED: MAG HYDROX/AL HYDROX/SIMETH 30 ML UNIT-DOSE CUP ONE (18:33)
[2020-08-11] MEDS: ASPIRIN COATED 81 MG TABLET.EC PO SCH (18:37)
[2020-08-11 18:43] LABS: PH,URINE 5.5 (5.0-8.0); URINE APPEARANCE CLEAR; URINE BILIRUBIN NEGATIVE (NEGATIVE); URINE COLOR YELLOW; URINE GLUCOSE (UA) NEGATIVE (NEGATIVE); URINE KETONE NEGATIVE (NEGATIVE); URINE LEUK ESTERASE NEGATIVE (NEGATIVE); URINE NITRITE NEGATIVE (NEGATIVE); URINE PROTEIN NEGATIVE (NEGATIVE); URINE UROBILINOGEN 0.2 mg/dL (0.2-1.0)
[2020-08-11] MEDS ORDERED: PATIENT'S OWN MEDICATION (NON-FORMULARY) (Pentosan Polysulfate Sodium [Elmiron] 100 MG Cap PO SCH (22:00)
[2020-08-11] MEDS ORDERED: ATORVASTATIN CA 10 MG TABLET (FP) ONE (22:16)
[2020-08-11] MEDS: ATORVASTATIN CA 10 MG TABLET (FP) PO SCH (22:21)
[2020-08-12 05:55] VITALS: BMI 45.6
[2020-08-12] MEDS: PANTOPRAZOLE 40 MG TABLET PO SCH (10:00)
[2020-08-12] MEDS ORDERED: PATIENT'S OWN MEDICATION (NON-FORMULARY) (Mirabegron [Myrbetriq] 50 MG Tab.Er.24h) PO SCH (10:00)
[2020-08-12 10:19] LABS: CALCIUM 9.1 mg/dl (8.5-10); CREATININE 0.9 mg/dl (0.55-1.3)
[2020-08-12] MEDS: ASPIRIN COATED 81 MG TABLET.EC PO SCH (11:42)
[2020-08-12] MEDS: HYDROCHLOROTHIAZIDE 25 MG TABLET (FP) PO SCH (11:42)
[2020-08-12] MEDS: ENOXAPARIN NA (PORCINE) 40 MG/0.4 ML DISP.SYRIN SQ SCH (11:42)
[2020-08-12] MEDS: VALSARTAN 160 MG TABLET PO SCH (11:42)
[2020-08-12] MEDS: METOPROLOL TARTRATE 25 MG TABLET (FP) PO SCH (11:42)
[2020-08-12] MEDS: POTASSIUM CHLORIDE TABS 20 MEQ TABLET.ER (FP) PO SCH ×2 (12:31→18:27)
[2020-08-12] MEDS: KCL 10 MEQ IVPB 10 MEQ/100 ML INFUS.BAG IVPB SCH ×2 (15:15→15:16)
[2020-08-12] MEDS: ATORVASTATIN CA 10 MG TABLET (FP) PO SCH (22:05)
[2020-08-13] MEDS ORDERED: REGADENOSON 0.4 MG/5 ML PRE-FILLED SYRINGE IVPUSH ONE ×2 (11:34→12:15)
[2020-08-13 16:57] VITALS: BP 134/74; PULSE 82; TEMP 98.7
[2020-08-13] MEDS: METOPROLOL TARTRATE 25 MG TABLET (FP) PO SCH (16:58)
[2020-08-13] MEDS: ASPIRIN COATED 81 MG TABLET.EC PO SCH (16:58)
[2020-08-13] MEDS: VALSARTAN 160 MG TABLET PO SCH (16:58)
[2020-08-13] MEDS: ENOXAPARIN NA (PORCINE) 40 MG/0.4 ML DISP.SYRIN SQ SCH (16:58)
[2020-08-13] MEDS: HYDROCHLOROTHIAZIDE 25 MG TABLET (FP) PO SCH (16:58)
[2020-08-13] MEDS: PANTOPRAZOLE 40 MG TABLET PO SCH (16:58)
== END 2020-08-13 17:45 | disposition home or self-care (01) ==
LOC: JER 09:21 → JERBED 12:02 → FM/S 08-12 07:24
PROVIDERS: ADMIT Internal Medicine; ATTEND Nurse Practitioner Acute Care
PROC: 3E0234Z Introduction of Serum, Toxoid and Vaccine into Muscle, Percutaneous Approach (ICD-10-PCS; principal; 2020-08-11)
PROC: 3E033GC Introduction of Other Therapeutic Substance into Peripheral Vein, Percutaneous Approach (ICD-10-PCS; 2020-08-11)
DX: R07.9 Chest pain, unspecified (principal); I44.7 Left bundle-branch block, unspecified; Z85.038 Personal history of other malignant neoplasm of large intestine; I10 Essential (primary) hypertension; E78.5 Hyperlipidemia, unspecified; Z29.9 Encounter for prophylactic measures, unspecified; Z68.42 Body mass index [BMI] 45.0-49.9, adult; E66.8 Other obesity
CPT/HCPCS: 36415; 71045-TC-FY; 71275-TC; 78452-TC; 80048; 80053; 81003; 82550; 82553; 83690; 83735; 83880; 84100; 84443; 84484; 85025; 85379; 85610; 85730; 93005; 93010; 93017; 93306-TC; 93970-TC; 96372; 96374; 99285-25; A9502; C9803; G0378; J2785; Q9967; U0003

== ENCOUNTER 2022-07-18 09:58 | Emergency (ER) | payer OTHER ==
[2022-07-18 10:13] VITALS: BP 121/74; PULSE 66; RESP 20; TEMP 98; BMI 45.1
[2022-07-18 10:44] LABS: EPI CELLS 24 /uL (0-25.1); HYALINE CASTS 0 /uL (0-3.1); PH,URINE 7.5 (5.0-8.0); URINE APPEARANCE CLEAR; URINE BACTERIA 21 /uL (0-1359); URINE BILIRUBIN NEGATIVE (NEGATIVE); URINE COLOR YELLOW; URINE GLUCOSE (UA) NEGATIVE (NEGATIVE); URINE KETONE NEGATIVE (NEGATIVE); URINE LEUK ESTERASE TRACE (NEGATIVE); URINE NITRITE NEGATIVE (NEGATIVE); URINE PROTEIN TRACE (NEGATIVE); URINE RBC 140 /uL (0-23.9); URINE WBC 29 /uL (0-25.8)
[2022-07-18] MEDS ORDERED: CEPHALEXIN 250 MG/5 ML ORAL SUSPENSION PO ONE (10:56)
[2022-07-18] MEDS ORDERED: CEPHALEXIN MONOHYDRATE 500 MG CAPSULE (UD) ONE (11:00)
== END 2022-07-18 11:07 | disposition home or self-care (01) ==
LOC: JER 09:58 → JERFT 09:58
DX: N30.01 Acute cystitis with hematuria (principal)
CPT/HCPCS: 81003; 87086; 99284-25

== ENCOUNTER 2023-02-02 19:10 | Emergency (ER) | payer OTHER ==
[2023-02-02 19:33] VITALS: BP 143/84; PULSE 71; RESP 18; TEMP 98.6; BMI 42.3
[2023-02-02] MEDS ORDERED: IBUPROFEN 600 MG TABLET (FP) PO ONE ×2 (20:52→20:57)
[2023-02-02] MEDS ORDERED: ACETAMINOPHEN 500 MG TABLET (FP) PO ONE (20:52)
[2023-02-02] MEDS ORDERED: ACETAMINOPHEN 500 MG TABLET (FP) ONE (20:57)
== END 2023-02-02 22:03 | disposition home or self-care (01) ==
LOC: JERFT 19:10
DX: M79.662 Pain in left lower leg (principal); M79.605 Pain in left leg; R22.42 Localized swelling, mass and lump, left lower limb; R20.0 Anesthesia of skin; R20.2 Paresthesia of skin; M79.10 Myalgia, unspecified site
CPT/HCPCS: 93971-TC; 99284-25

== ENCOUNTER → 2023-05-04 | Day surgery (SDC) | payer OTHER | END | disposition home or self-care (01) | LOC: JRADIR 09:23 | PROVIDERS: ATTEND Internal Medicine | PROC: 0G9G3ZX Drainage of Left Thyroid Gland Lobe, Percutaneous Approach, Diagnostic (ICD-10-PCS; principal; 2023-05-04) | DX: E04.1 Nontoxic single thyroid nodule (principal) | CPT/HCPCS: 10005; 76942; 88173; 88305-TC ==

== ENCOUNTER 2024-04-02 10:15 | Emergency (ER) | payer OTHER ==
[2024-04-02 10:25] VITALS: BP 159/75; PULSE 82; RESP 16; TEMP 97.7; BMI 48.4
[2024-04-02] MEDS ORDERED: MECLIZINE HCL 25 MG TABLET (FP) ONE (10:43)
[2024-04-02] MEDS: MECLIZINE HCL 25 MG TABLET (FP) PO ONE (11:13)
[2024-04-02 11:40] LABS: POTASSIUM 3.6 mmol/L (3.5-5.1)
[2024-04-02 11:42] LABS: ALBUMIN 3.7 g/dl (3.4-5.0); BLOOD UREA NITROGEN 15.1 mg/dL (7-18); CALCIUM 9.5 mg/dL (8.5-10.1)
[2024-04-02 11:47] LABS: BILIRUBIN,TOTAL 0.9 mg/dL (0.2-1); TOT PROT 7.6 g/dl (6.4-8.2)
[2024-04-02 11:56] LABS: BASO % 0.6 % (0-2.0); EOS % 1.3 % (0-4.5); HEMATOCRIT 42.9 % (32.4-45.2); HEMOGLOBIN 13.9 GM/dL (10.7-15.3); LYMPH % 24.6 % (8-40); MCH 27.8 pg (25.7-33.7); MCHC 32.4 g/dl (32.0-36.0); MEAN CELL VOLUME 85.9 fl (80-96); MEAN PLT VOLUME 8.8 fl (7.5-11.1); MONO % 7.2 % (3.8-10.2); NEUT % 66.3 % (42.8-82.8); PLATELET COUNT 214 10^3/uL (134-434); RDW 14.8 % (11.6-15.6)
[2024-04-02 12:04] LABS: EPI CELLS 25 /uL (0-25.1); HYALINE CASTS 0 /uL (0-3.1); PH,URINE 6.5 (5.0-8.0); URINE APPEARANCE CLEAR; URINE BACTERIA 210 /uL (0-1359); URINE BILIRUBIN NEGATIVE (NEGATIVE); URINE COLOR YELLOW; URINE GLUCOSE (UA) NEGATIVE (NEGATIVE); URINE KETONE NEGATIVE (NEGATIVE); URINE LEUK ESTERASE TRACE (NEGATIVE); URINE NITRITE NEGATIVE (NEGATIVE); URINE PROTEIN NEGATIVE (NEGATIVE); URINE RBC 17 /uL (0-23.9); URINE WBC 20 /uL (0-25.8)
[2024-04-02] MEDS ORDERED: CEPHALEXIN MONOHYDRATE 500 MG CAPSULE (UD) ONE (12:25)
[2024-04-02] MEDS: CEPHALEXIN MONOHYDRATE 500 MG CAPSULE (UD) PO ONE (12:37)
[2024-04-02 15:41] LABS: HIV INTERPRETATION NEGATIVE (NEGATIVE)
== END 2024-04-02 12:45 | disposition home or self-care (01) ==
LOC: JER 10:15
DX: N39.0 Urinary tract infection, site not specified (principal); R42 Dizziness and giddiness; R35.0 Frequency of micturition; R10.30 Lower abdominal pain, unspecified
CPT/HCPCS: 36415; 80053; 81003; 85025; 86803; 87086; 87389; 93005; 93010; 99284-25

== ENCOUNTER 2024-10-21 16:53 | Emergency (ER) | payer OTHER ==
[2024-10-21 17:41] VITALS: BP 126/83; PULSE 76; RESP 17; TEMP 97.5; BMI 44.4
[2024-10-21 18:30] LABS: PH,URINE 5.5 (5.0-8.0); URINE APPEARANCE CLEAR; URINE BILIRUBIN NEGATIVE (NEGATIVE); URINE COLOR YELLOW; URINE GLUCOSE (UA) NEGATIVE (NEGATIVE); URINE KETONE NEGATIVE (NEGATIVE); URINE LEUK ESTERASE NEGATIVE (NEGATIVE); URINE NITRITE NEGATIVE (NEGATIVE); URINE PROTEIN NEGATIVE (NEGATIVE)
== END 2024-10-21 18:51 | disposition home or self-care (01) ==
LOC: JER 16:53
DX: R10.2 Pelvic and perineal pain (principal)
CPT/HCPCS: 81003; 87086; 99283-25